=== PATIENT | male | born 1960 | race Caucasian/White ===

== ENCOUNTER 2018-12-07 22:45 | Emergency (ER) | payer OTHER ==
[~2018-12-07] VITALS: Ht 190.5 cm; Wt 129.3 kg
[~2018-12-07 22:45] MED LIST: ASPIRIN EC81 MG PO; ATORVASTATIN CA40 MG PO; CITALOPRAM HBR20 MG PO; DILTIAZEM 24HR360 MG PO; NITROSTAT0.4 MG SL; NORCO 5-325 TA1 EACH PO
== END 2018-12-07 23:59 | disposition home or self-care (01) ==
LOC: ED 22:45
DX: S93.602A Unspecified sprain of left foot, initial encounter (principal); E78.00 Pure hypercholesterolemia, unspecified; Z79.82 Long term (current) use of aspirin; Z79.899 Other long term (current) drug therapy; X58.XXXA Exposure to other specified factors, initial encounter
CPT/HCPCS: 73630; 99283

== ENCOUNTER 2021-03-01 17:28 | Emergency (ER) | payer OTHER ==
[~2021-03-01] VITALS: Ht 190.5 cm; Wt 129.3 kg
--- NOTE | 2021-03-02 19:14 | EKG ---
[facility] [address] [place], [place] [address] Signed Normal sinus rhythm Normal ECG When compared with ECG of 12-DEC-2016 20:10, No significant change was found Confirmed by DEV AMEZCUA DO ([id number]) on 03/02/2021 7:14:20 PM Electronically Signed By: DEV AMEZCUA DO 03/02/21 [id number] PATIENT NAME: BO CATHERINE III Electrocardiogram DATE OF : 60 PHYSICIAN: DEV AMEZCUA DO REPORT #: [id number] REPORT IS CONFIDENTIAL AND NOT TO BE RELEASED WITHOUT AUTHORIZATION
== END 2021-03-01 23:30 | disposition home or self-care (01) ==
LOC: ED 17:28
DX: U07.1 COVID-19 (principal); J12.82 Pneumonia due to coronavirus disease 2019; E78.00 Pure hypercholesterolemia, unspecified; Z79.899 Other long term (current) drug therapy; Z79.82 Long term (current) use of aspirin
CPT/HCPCS: 71045; 80053; 83735; 84484; 85025; 93005; 93010; 99285-25; M0243; Q0244; U0003